=== PATIENT | female | born 1960 | race Caucasian/White ===

== ENCOUNTER 2020-03-07 17:55 | Emergency (ER) | payer OTHER, BC, SELFPAY ==
--- NOTE | ~2020-03-07 | XR_ITS ---
EXAMINATION: XR knee RT min 4V DATE: 03/07/2020 18:22 INDICATION: Medial right knee pain. TECHNIQUE: Anteroposterior, 2 oblique and crosstable lateral views of the affected knee were obtained COMPARISON: None. FINDINGS: Alignment is normal. No fracture. Small joint effusion versus synovitis at the suprapatellar pouch w ithout layering lipohemarthrosis. Mild joint space narrowing is seen in the medial compartment on one of the oblique projections although joint space during to be underestimated on nonweightbearing imag ing. Soft tissues are unremarkable. IMPRESSION: 1. At least mild osteoarthritis in the medial compartment and small right knee joint effusion. Reviewed, dictated and finalized at location A.
[2020-03-07 18:02] VITALS: BP 137/86; PULSE 84; RESP 14; TEMP 36.6; O2SAT 98
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
== END 2020-03-07 19:04 | disposition home or self-care (01) ==
PROVIDERS: Emergency Provider Registered Nurse
DX: M25.461 Effusion, right knee (principal); M17.11 Unilateral primary osteoarthritis, right knee; F17.210 Nicotine dependence, cigarettes, uncomplicated
CPT/HCPCS: 73564; 99213; G0463

== ENCOUNTER 2020-03-12 14:53 | Outpatient (CLI) | payer OTHER, BC, SELFPAY ==
[2020-03-12 15:24] LABS: Basophils Absolute Auto 0.1 K/mm3 (0.0-0.1); Basophils Percent Auto 0.8 % (0.2-1.2); Eosinophils Absolute Auto 0.1 K/mm3 (0-0.3); Eosinophils Percent Auto 1.8 % (0-4.4); Hematocrit 42.6 % (37.0-47.0); Hemoglobin 13.8 g/dL (12.0-15.0); Immature Granulocyte Absolute 0.04 K/mm3 (0.00-0.031); Immature Granulocyte Percent A 0.5 % (0-0.5); Lymphocytes Absolute Auto 3.06 K/mm3 (0.9-3.2); Mean Corpuscular HGB Conc 32.4 g/dl (32-36); Mean Corpuscular Hemoglobin 29.1 pg (26-34); Mean Corpuscular Volume 89.9 fl (80-100); Mean Platelet Volume 8.6 fl (7.4-10.4); Monocytes Absolute Auto 0.9 K/mm3 (0.1-0.6); Monocytes Percent Auto 12.3 % (2.6-8.5); Neutrophils Absolute Auto 3.1 K/mm3 (1.3-6.7); Neutrophils Percent Auto 42.6 % (45.5-73.1); Platelet Count Result 247 k/mm3 (150-375); Red Blood Count 4.74 M/mm3 (4.2-5.4); Red Cell Distribution Width 12.6 % (11.5-14.5); White Blood Count 7.3 K/mm3 (4.5-10.0)
[2020-03-12 15:37] LABS: Rheumatoid Factor < 8.6 IU/ML (<12)
[2020-03-12 15:39] LABS: CRP < 0.5 mg/dL (<1.0)
[2020-03-12 15:58] LABS: Erythrocyte Sedimentation Rate 8 mm/hr (0-20)
[2020-03-14 22:37] LABS: Anti Cyclic Citrullinated Pept <16 Units (<20)
== END 2020-03-12 14:54 | disposition home or self-care (01) ==
PROVIDERS: Visit Provider Orthopaedic Surgery
DX: M06.9 Rheumatoid arthritis, unspecified (principal)
CPT/HCPCS: 36415; 85025; 85652; 86038; 86140; 86200; 86430

== ENCOUNTER → 2020-03-21 07:03 | Outpatient (CLI) | payer OTHER, BC, SELFPAY ==
--- NOTE | ~2020-03-21 | MR_ITS ---
EXAMINATION: MR knee RT wo con DATE: 03/21/2020 07:43 INDICATION: Other tear of medial meniscus, current injury, right knee. TECHNIQUE: Magnetic resonance imaging (MRI) of the right knee was performed without intravenous contr ast. Sequences included axial PD-weighted FS FSE, coronal PD-weighted FSE and PD-weighted FS FSE, sag ittal PD-weighted FSE, and sagittal T2-weighted FS FSE. COMPARISON: Right knee radiographs 03/07/2020 FINDINGS: Medial compartment: There is a complex tear involving body and posterior horn of medial meniscus. There is partial-thickn ess cartilage loss of tibial condyle, deep at the anteromedial articular surface with mild subchondra l edema-like signal intensity. There is partial-thickness cartilage loss of femoral condyle, deep at the central articular surface. There are tiny marginal osteophytes. Lateral compartment: Lateral meniscus is normal. The lateral compartment cartilage is normal. Patellofemoral compartment: Patellar cartilage is normal. Trochlear cartilage is normal. Ligaments and tendons: The anterior and posterior cruciate ligaments are normal. There is edema around medial collateral lig ament, likely from the meniscal pathology. There are changes of prior sprain of fibular collateral li gament characterized by thickening and increased signal intensity proximally. There is mild patellar tendinopathy. Fluid: There is a small knee joint effusion. There is a small Mead's cyst. There is mild prepatellar and wagner perficial infrapatellar bursitis. IMPRESSION: 1. Moderate chondrosis of medial compartment. 2. Tear of medial meniscus. 3. Small knee joint effusion. 4. Small Mead's cyst. Reviewed, dictated and finalized at location A.
== END ==
PROVIDERS: Visit Provider Orthopaedic Surgery
DX: S83.241A Other tear of medial meniscus, current injury, right knee, initial encounter (principal); X58.XXXA Exposure to other specified factors, initial encounter; M25.461 Effusion, right knee; M71.21 Synovial cyst of popliteal space [Baker], right knee
CPT/HCPCS: 73721

== ENCOUNTER 2025-03-24 10:55 | Emergency (ER) | payer OTHER, SELFPAY ==
[2025-03-24 10:58] VITALS: BP 153/103; PULSE 93; RESP 20; TEMP 36.7; O2SAT 96
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
--- NOTE | 2025-03-24 11:45 | PC.NURSE ---
initial urine sample was red in color but too small amount for test and cx, supervisor paste mixing explained all, was given water and was able to give sufficient amount for testing. remained red in color.
[2025-03-24 11:51] LABS: EDUAAPPEAR Clear; EDUABILI 2+ (Negative); EDUABLOOD 3+ (Negative); EDUACOLOR1 Red; EDUAGLUCOSE Negative (Negative); EDUAKETONE 1+ (Negative); EDUALEUKO 3+ (Negative); EDUANITRATE Positive (Negative); EDUAPH 5.5; EDUAPROTEIN 3+ (Negative); EDUASPGRAVITY 1.025; EDUAUROBILI 1.0
== END 2025-03-24 12:13 | disposition home or self-care (01) ==
PROVIDERS: Emergency Provider Nurse Practitioner; PCP Hospitalist
DX: N30.01 Acute cystitis with hematuria (principal); F17.210 Nicotine dependence, cigarettes, uncomplicated; M17.0 Bilateral primary osteoarthritis of knee
CPT/HCPCS: 81003; 87086; 87186; 99213; G0463